=== PATIENT | female | born 2000 | race Caucasian/White ===

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

== ENCOUNTER → 2020-07-12 | Outpatient (CLI) | payer SELFPAY ==
[2020-07-14 00:09] LABS: CHLAMYDIA TRACHOMATIS, NAA Negative (Negative)
== END | disposition home or self-care (01) ==
LOC: LAB SHORT 08:06 → LAB 08:06
PROVIDERS: Nurse Practitioner Family
DX: Z20.2 Contact with and (suspected) exposure to infections with a predominantly sexual mode of transmission (principal)
CPT/HCPCS: 87491; 87591

== ENCOUNTER → 2021-05-05 | Outpatient (CLI) | payer BC | END | disposition home or self-care (01) | LOC: LAB SHORT 14:47 | DX: M54.50 Low back pain, unspecified (principal) | CPT/HCPCS: 87086 ==

== ENCOUNTER → 2021-06-27 | Outpatient (CLI) | payer BC | LOC: LAB SHORT 12:47 | DX: R30.9 Painful micturition, unspecified (principal) | CPT/HCPCS: 87086 ==

== ENCOUNTER → 2021-07-26 | Outpatient (CLI) | payer OTHER ==
[~2021-07-26] MED LIST changes: +PRENATAL TABLE1 EAC2 PO
[2021-07-26 10:02] LABS: Source, Urine Clean Catch
[2021-07-26 12:12] LABS: Appearance, Urine Clear (Clear); Bilirubin, Urine Neg (Neg); Blood, Urine Neg (Neg); Color, Urine Yellow (P-Yellow); Glucose Qualitative, Urine Neg (Neg); Ketones, Urine Neg (Neg); Leukocyte Esterase, Urine Neg (Neg); Nitrite, Urine Neg (Neg); Protein, Urine Neg (Neg); Urobilinogen, Urine NORM (Normal)
[2021-07-26 12:20] LABS: BASOPHILS ABSOLUTE AUTO 0.02 K/mm3 (0.00-0.23); BASOPHILS PERCENT AUTO 0 % (0-2); EOSINOPHILS ABSOLUTE AUTO 0.08 K/mm3 (0.00-0.68); EOSINOPHILS PERCENT AUTO 1 % (0-6); Hematocrit 40.9 % (33.0-51.0); Hemoglobin 13.4 g/dL (11.5-16.0); IMMATURE GRAN ABSOLUTE AUTO 0.03 K/mm3 (0.00-0.10); IMMATURE GRAN PERCENT AUTO 0 % (0-1); LYMPHOCYTES ABSOLUTE AUTO 2.06 K/mm3 (0.84-5.20); LYMPHOCYTES PERCENT AUTO 26 % (21-46); MONOCYTES ABSOLUTE AUTO 0.65 K/mm3 (0.16-1.47); MONOCYTES PERCENT AUTO 8 % (4-13); Mean Corpuscular HGB 28.3 pg (26.0-34.0); Mean Corpuscular HGB Conc 32.8 g/dL (31.5-36.5); Mean Corpuscular Volume 86 fL (80-100); Mean Platelet Volume 9.3 fL (9.1-12.4); NEUTROPHILS ABSOLUTE AUTO 5.15 K/mm3 (1.96-9.15); NEUTROPHILS PERCENT AUTO 64 % (41-73); Platelet Count 465 K/mm3 (150-400); RDW Coefficient Variation 13.2 % (11.7-14.2); RDW Standard Deviation 41.4 fL (35.1-46.3); Red Blood Cell Count 4.74 M/mm3 (3.80-5.20); White Blood Cell Count 7.99 K/mm3 (4.00-11.30)
[2021-07-27 06:10] LABS: HBSAG SCREEN Negative (Negative)
[2021-07-27 07:10] LABS: HIV AB/P24 AG SCREEN Non Reactive (Non Reactive)
== END ==
LOC: LAB SHORT 09:25
PROVIDERS: Registered Nurse Community Health
DX: Z34.91 Encounter for supervision of normal pregnancy, unspecified, first trimester (principal)
CPT/HCPCS: 81003; 84443; 87086

== ENCOUNTER 2021-07-28 15:41 | Emergency (ER) | payer BC ==
[~2021-07-28] VITALS: Ht 172.7 cm; Wt 69.0 kg
[~2021-07-28 15:41] MED LIST changes: -PRENATAL TABLE1 EAC2 PO
[2021-07-28] MEDS ORDERED: PRENATAL TABLE1 EAC2 PO (16:14)
[2021-07-28 16:18] LABS: Source, Urine Clean Catch
[2021-07-28 16:31] LABS: Appearance, Urine Clear (Clear); Bilirubin, Urine Neg (Neg); Blood, Urine 3+ (Neg); Color, Urine Yellow (P-Yellow); Glucose Qualitative, Urine Neg (Neg); Ketones, Urine Neg (Neg); Leukocyte Esterase, Urine Neg (Neg); Nitrite, Urine Neg (Neg); Protein, Urine Neg (Neg); Urobilinogen, Urine NORM (Normal)
[2021-07-28 16:32] LABS: BASOPHILS ABSOLUTE AUTO 0.02 K/mm3 (0.00-0.23); BASOPHILS PERCENT AUTO 0 % (0-2); EOSINOPHILS ABSOLUTE AUTO 0.09 K/mm3 (0.00-0.68); EOSINOPHILS PERCENT AUTO 1 % (0-6); Hematocrit 41.1 % (33.0-51.0); Hemoglobin 13.3 g/dL (11.5-16.0); IMMATURE GRAN ABSOLUTE AUTO 0.02 K/mm3 (0.00-0.10); IMMATURE GRAN PERCENT AUTO 0 % (0-1); LYMPHOCYTES ABSOLUTE AUTO 3.52 K/mm3 (0.84-5.20); LYMPHOCYTES PERCENT AUTO 33 % (21-46); MONOCYTES ABSOLUTE AUTO 0.89 K/mm3 (0.16-1.47); MONOCYTES PERCENT AUTO 8 % (4-13); Mean Corpuscular HGB 27.9 pg (26.0-34.0); Mean Corpuscular HGB Conc 32.4 g/dL (31.5-36.5); Mean Corpuscular Volume 86 fL (80-100); Mean Platelet Volume 9.3 fL (9.1-12.4); NEUTROPHILS ABSOLUTE AUTO 6.07 K/mm3 (1.96-9.15); NEUTROPHILS PERCENT AUTO 57 % (41-73); Platelet Count 429 K/mm3 (150-400); RDW Coefficient Variation 13.2 % (11.7-14.2); RDW Standard Deviation 41.4 fL (35.1-46.3); Red Blood Cell Count 4.77 M/mm3 (3.80-5.20); White Blood Cell Count 10.61 K/mm3 (4.00-11.30)
[2021-07-28 17:17] LABS: Bacteria Rare /hpf; Squamous Epithelial Cells Rare /hpf (Few); White Blood Cells, Urine 0-2 /hpf (0-5)
== END 2021-07-28 19:40 | disposition home or self-care (01) ==
LOC: ER 15:41
PROVIDERS: Physician Assistant
DX: O20.9 Hemorrhage in early pregnancy, unspecified (principal); O99.891 Other specified diseases and conditions complicating pregnancy; N83.8 Other noninflammatory disorders of ovary, fallopian tube and broad ligament; Z88.0 Allergy status to penicillin; Z88.1 Allergy status to other antibiotic agents; Z3A.01 Less than 8 weeks gestation of pregnancy
CPT/HCPCS: 36415; 76801; 76817; 81001; 84702; 85025; 86900; 86901; 99284-25

== ENCOUNTER 2021-07-30 15:12 | Day surgery (SDC) | payer BC ==
[~2021-07-30] VITALS: Ht 172.7 cm; Wt 69.1 kg
[~2021-07-30 15:12] MED LIST changes: +PRENATAL TABLE1 EAC2 PO
--- NOTE | 2021-07-30 16:10 | NUR ---
Ambulatory in Day Surgery History, Chart, Medications and Allergies reviewed before start of procedure.PT REPORTS NPO AT 1030 THIS MORNING.SHE ATE A BREAKFAST SANDWICH AND CHEESE ITS.ANESTHESIA AND DR FIELDS NOTIFIED.PER OR SECURITY SYSTEMS MANAGERKIMBERLY FIELDS AND [facility] ARE PLANNING FOR PROCEDURE AT APPROX 1645. Surgical site prepped with 2% Chlorhexidine cloth wipe. Lungs clear T/O to Auscultation. Patient States Post-Procedure ride home has been arranged WITH ISRRAEL
--- NOTE | 2021-07-30 16:13 | NUR ---
JEWELRY INCLUDING EARINGS, ENGAGEMENT RING, NOSE RING REMOVED PLACED IN LABELED BAG AND GIVEN TO ISRRAEL PER PT REQUEST
[2021-07-30 16:20] LABS: BASOPHILS ABSOLUTE AUTO 0.02 K/mm3 (0.00-0.23); BASOPHILS PERCENT AUTO 0 % (0-2); EOSINOPHILS ABSOLUTE AUTO 0.12 K/mm3 (0.00-0.68); EOSINOPHILS PERCENT AUTO 1 % (0-6); Hematocrit 37.5 % (33.0-51.0); Hemoglobin 12.2 g/dL (11.5-16.0); IMMATURE GRAN ABSOLUTE AUTO 0.03 K/mm3 (0.00-0.10); IMMATURE GRAN PERCENT AUTO 0 % (0-1); LYMPHOCYTES ABSOLUTE AUTO 2.58 K/mm3 (0.84-5.20); LYMPHOCYTES PERCENT AUTO 31 % (21-46); MONOCYTES ABSOLUTE AUTO 0.78 K/mm3 (0.16-1.47); MONOCYTES PERCENT AUTO 9 % (4-13); Mean Corpuscular HGB 28.4 pg (26.0-34.0); Mean Corpuscular HGB Conc 32.5 g/dL (31.5-36.5); Mean Corpuscular Volume 87 fL (80-100); Mean Platelet Volume 9.2 fL (9.1-12.4); NEUTROPHILS ABSOLUTE AUTO 4.92 K/mm3 (1.96-9.15); NEUTROPHILS PERCENT AUTO 58 % (41-73); Platelet Count 353 K/mm3 (150-400); RDW Coefficient Variation 13.2 % (11.7-14.2); RDW Standard Deviation 42.3 fL (35.1-46.3); Red Blood Cell Count 4.29 M/mm3 (3.80-5.20); White Blood Cell Count 8.45 K/mm3 (4.00-11.30)
--- NOTE | 2021-07-30 17:25 | NUR ---
07/30/21 [id number] Marino Santos [id number] ASSUMED CARE OF PATIENT. JIMENEZ CATH IN PLACE AND PREP COMPLETED PER
--- NOTE | 2021-07-30 19:14 | NUR ---
Discharge instructions reviewed with patient. Patient verbalizes understanding. Copy given to patient to take home. PATIENT REPORTS "SORE" MEDICATED WITH ONE PERCOCET. DENIES NAUSEA. TOLERATING PO WELL. DISCHARGE INSTRUCTIONS REVEIWED WITH S/O. BOTH PATIENT AND S/O DENY QUESTIONS OR CONCERNS. Discharged via wheelchair to private car for ride home.
== END 2021-07-30 22:59 | disposition home or self-care (01) ==
LOC: ORSCMMR 15:12 → ORD 15:12 → ORSCMMR 15:13 → ORD 22:59 → ORSCSDS 07-31 13:30
PROVIDERS: Obstetrics & Gynecology
PROC: 0UT64ZZ Resection of Left Fallopian Tube, Percutaneous Endoscopic Approach (ICD-10-PCS; principal; 2021-07-30 12:45)
PROC: 10T24ZZ Resection of Products of Conception, Ectopic, Percutaneous Endoscopic Approach (ICD-10-PCS; principal; 2021-07-30 12:45)
DX: O00.102 Left tubal pregnancy without intrauterine pregnancy (principal); N83.8 Other noninflammatory disorders of ovary, fallopian tube and broad ligament
CPT/HCPCS: 36415; 85025; 86850; 86900; 86901; 88305; A9270; J1100; J1885; J2250; J2405; J2704; J3010; J7120

== ENCOUNTER 2022-09-19 22:44 | Emergency (ER) | payer OTHER ==
[~2022-09-19] VITALS: Ht 172.7 cm; Wt 68.0 kg
[2022-09-19 22:54] VITALS: BP 138/102
[2022-09-19] MEDS ORDERED: OXYC5 PO (22:56)
[2022-09-19] MEDS ORDERED: CLIN150 PO (22:56)
[2022-09-19] MEDS ORDERED: Percocet 5-3251 EACH PO (23:25)
== END 2022-09-19 23:36 | disposition home or self-care (01) ==
LOC: ER 22:44
DX: K04.7 Periapical abscess without sinus (principal); Z88.0 Allergy status to penicillin; Z88.1 Allergy status to other antibiotic agents; Z79.899 Other long term (current) drug therapy
CPT/HCPCS: 64400; 99282-25

== ENCOUNTER → 2023-10-07 | Outpatient (CLI) | payer OTHER ==
[~2023-10-07] MED LIST changes: +CLIN150 PO; +OXYC5 PO; +Percocet 5-3251 EACH PO
[2023-10-08 12:09] LABS: Bacterial Vaginosis PCR Negative (NEGATIVE); Candida Group, PCR NOT DETECTED (NOT DETECT); Candida glabrata-krusei, PCR NOT DETECTED (NOT DETECT)
== END | disposition home or self-care (01) ==
LOC: LAB SHORT 20:30 → LAB 20:30
PROVIDERS: Physician Assistant
DX: N89.8 Other specified noninflammatory disorders of vagina (principal)
CPT/HCPCS: 87481; 87661; 87801